=== PATIENT | female | born 1980 | race Caucasian/White ===

== ENCOUNTER 2016-10-18 21:41 | Emergency (ER) | payer SELFPAY ==
[~2016-10-18] VITALS: Ht 170.2 cm; Wt 76.2 kg
[2016-10-18 21:58] VITALS: BP 122/74
[2016-10-18] MEDS ORDERED: TRAM-48 PO (22:43)
[2016-10-18] MEDS ORDERED: ACYC800T PO (22:43)
[2016-10-18] MEDS ORDERED: PRED50TA PO (22:43)
--- NOTE | 2016-10-18 22:43 | PHYS DOC ---
Past Medical History Past Medical History: No Pertinent History Past Surgical History: No Surgical History Additional Information: BL[employer] 1-2 CIGARS A DAY Alcohol Use: Occasionally Drug Use: None Adult General Chief Complaint Chief Complaint: SKIN RASH/ABSCESS HPI HPI Patient is a 36 year old female with no significant medical history who presents today complaining of shingles rash on the right side of her back that she noted this morning. Patient denies any previous history of shingles. Review of Systems Review of Systems Constitutional: Denies fever or chills [] Musculoskeletal: Denies back pain or joint pain [] Integument: shingles rash on the right side of the back Neurologic: Denies headache, focal weakness or sensory changes [] Endocrine: Denies polyuria or polydipsia [] Allergies Allergies Allergies Coded Allergies Type Severity Reaction Last Updated Verified No Known Drug Allergies 10/18/16 No Physical Exam Physical Exam Constitutional: Well developed, well nourished, no acute distress, non-toxic appearance. [] Skin: Posterior back at dermatome T4 with redness suspicious of shingles. The bra runs around same the area as well and it has indented the region. Back: No tenderness, no CVA tenderness. [] Extremities: No tenderness, no cyanosis, no clubbing, ROM intact, no edema. [] Neurologic: Alert and oriented X 3, normal motor function, normal sensory function, no focal deficits noted. [] Psychologic: Affect normal, judgement normal, mood normal. [] Current Patient Data Vital Signs Vital Signs Date Time Temp Pulse Resp B/P (MAP) Pulse Ox O2 Delivery O2 Flow Rate FiO2 10/18/16 21:58 97.7 80 18 96 Room Air 97.7 EKG EKG [] Radiology/Procedures Radiology/Procedures [] Course & Med Decision Making Course & Med Decision Making Pertinent Labs and Imaging studies reviewed. (See chart for details) Patient is in the ED with a shingles rash. Discharged with acyclovir and prednisone and Ultram. Follow-up with PCP in 1-2 weeks. Dragon Disclaimer Dragon Disclaimer This electronic medical record was generated, in whole or in part, using a voice recognition dictation system. Departure Departure Impression: Primary Impression: Shingles Disposition: 01 HOME, SELF-CARE Condition: STABLE Referrals: NO PCP (PCP) Follow-up with your doctor in 1-2 weeks Patient Instructions: Shingles, [id number] Additional Instructions: You were seen for shingles rash. Take the prescribed medicines as ordered. Follow-up with your doctor in 1-2 weeks. Scripts Tramadol Hcl (ULTRAM) 50 Mg Tablet 1 TAB PO Q6HRS, #30 TAB Prov: CHAD MENDOZA APRN 10/18/16 Prednisone (PREDNISONE) 50 Mg Tablet 1 TAB PO DAILY, #5 TAB Prov: CHAD MENDOZA APRN 10/18/16 Acyclovir (ACYCLOVIR) 800 Mg Tablet 1 TAB PO 5XDAY, #50 TAB Prov: CHAD MENDOZA APRN 10/18/16 Problem Qualifiers Primary Impression: Shingles Herpes zoster complications: without complications Qualified Codes: B02.9 - Zoster without complications CHAD MENDOZA APRN Oct 18, 2016 22:43
== END 2016-10-18 22:47 | disposition home or self-care (01) ==
LOC: ER 21:41
DX: B02.9 Zoster without complications (principal); F17.210 Nicotine dependence, cigarettes, uncomplicated
CPT/HCPCS: 99283